=== PATIENT | female | born 1975 | race Caucasian/White ===

== ENCOUNTER 2021-08-05 10:45 | Emergency (ER) | payer OTHER, SELFPAY ==
[2021-08-05 11:10] VITALS: BP 121/86; PULSE 84; RESP 20; TEMP 37; O2SAT 96; BMI 29.2
--- NOTE | 2021-08-05 11:38 | ED_ITS ---
HPI - Headache General Chief Complaint: Headache Stated Complaint: headache Time Seen by Provider: 08/05/21 11:38 Source: patient Mode of arrival: ambulatory Limitations: no limitations History of Present Illness HPI Narrative: patient with a long history of migraines, states that she has had hemiparesis in the past, this one has lasted a week and she has had slurred speech with it. Pain is right sided. MD elicited complaint: migraine Onset (ago): week(s) Onset description: gradually Location: right Severity: moderate Quality & Timing: throbbing and similar to previous headaches Exacerbating factors: none Relieving factors: nothing Associated symptoms: nausea Related Data Previous Rx's Medication Instructions Recorded naproxen 500 mg tablet (Naprosyn) 500 mg PO BID #20 tab 08/05/21 Allergies Allergy/AdvReac Type Severity Reaction Status Date / Time hydrocodone [From VICODIN] Allergy Severe RASH Unverified 06/12/20 17:08 oxycodone [From PERCOCET] Allergy Intermediate RASH Unverified 06/12/20 17:08 soy [SOY] Allergy Intermediate INTESTINAL Unverified 06/12/20 17:08 DISTRESS Review of Systems Constitutional: Constitutional: Reports no additional constitutional complaints Eyes: Eyes: Reports no additional eye complaints ENT: Denies dizziness Cardiovascular: Cardiovascular: Reports no additional cardiovascular complaints Respiratory: Respiratory: Reports as per HPI Gastrointestinal: Gastrointestinal: Reports no additional gastrointestinal complaints Genitourinary: Genitourinary: Reports no additional female genitourinary complaints Musculoskeletal: Musculoskeletal: Reports no additional musculoskeletal complaints Integumentary/Breasts: Skin/Breast: Denies rash Neurologic: Reports system reviewed and no additional complaints, except as documented, Denies dizziness and Denies Sensory deficit (Neuro) Psychiatric: Psychiatric: Denies anxiety [facility] Social History Social History Advance Directives: No Advance Directives Information Provided: No Patient : No Physical Exam Vital Signs: Vital Signs: Last Vital Signs Temp 98.6 F 08/05/21 11:10 Pulse 84 08/05/21 11:10 Resp 20 08/05/21 11:10 BP 121/86 08/05/21 11:10 Pulse Ox 96 08/05/21 11:10 Body Mass Index 29.2 Const: General: healthy appearing Nutritional Appearance: average body habitus Orientation/consciousness: oriented to person and patient oriented x3 Limitations: no limitations HENMT: Head: Yes normal to inspection Ears: external ears normal General nose exam: Normal external nose present Mouth: Normal oral and palatal mucosa present and oropharynx normal Throat: Yes posterior oropharynx normal Eyes: General: appearance normal, both eyes and all related structures Neck: Other: supple Neck: Yes normal visual inspection Chest: Chest palpation & inspection: normal inspection of the chest Resp: Auscultation: clear to auscultation bilaterally Cardio: Jugular venous distension: no JVD Rate: regular rate Rhythm: regular rhythm Heart sounds: S1 normal heart sound present and S2 normal heart sound present GI: Inspection: Yes normal to inspection Palpation (GI): Soft to palpation, nontender and No hepatosplenomegaly present Auscultation: normal bowel sounds : General: Yes no CVA tenderness Back/Spine/Pelvis: Back: no CVA tenderness Skin: General skin exam: no rashes or lesions noted Neuro: General: oriented to person and patient oriented x3 Cranial nerves: Yes CN's II-XII intact bilaterally Motor exam (neuro): 5/5 motor strength present throughout Sensory Exam: No Sensory deficit (Neuro) Extrem: General: Yes normal to inspection Psych: Appearance: grossly normal Course Reevaluation(s) Reevaluation #1: patient sleeping, headache gone, will dc home Time: 15:44 Discharge Plan Discharge Clinical Impression: Migraine Qualifiers: Migraine type: hemiplegic Status migrainosus presence: with status migrainosus Intractability: not intractable Qualified Code(s): G43.401 - Hemiplegic migraine, not intractable, with status migrainosus Patient Disposition: Home, Self-Care Instructions: Migraine Headache (ED) Prescriptions: New naproxen [Naprosyn] 500 mg tablet 500 mg PO BID Qty: 20 RF: 0 Referrals: Mena Okeefe NP [Primary Care Provider] - 1 week
[2021-08-05] MEDS: diphenhydrAMINE HCL 50 MG/ML VIAL 25 MG IVPUSH (12:09)
[2021-08-05] MEDS: Ketorolac Tromethamine 15 MG/ML VIAL 30 MG IVPUSH (12:09)
[2021-08-05] MEDS: 0.9 % Sodium Chloride 1,000 ML 999 ML IVCONT ×2 (12:15→12:57)
--- NOTE | 2021-08-05 15:15 | PC.NURSE ---
pt sleeping, woken by voice. States headache and nausea are better.
== END 2021-08-05 16:07 | disposition home or self-care (01) ==
PROVIDERS: Emergency Provider Emergency Medicine; PCP Nurse Practitioner Family
DX: G43.401 Hemiplegic migraine, not intractable, with status migrainosus (principal)
CPT/HCPCS: 96361; 96374; 96375; 99284; J1200; J1885; J2550